=== PATIENT | female | born 1985 | race Caucasian/White ===

== ENCOUNTER 2018-10-13 11:36 | Inpatient (IN) | payer MEDICAID ==
[2018-10-13] MEDS: LACTATED RINGER'S 1,000 ML IV ×3 (12:24→18:10)
[2018-10-13] MEDS ORDERED: METHYLERGONOVINE 0.2 MG INJ IM ×2 (12:30→16:00)
[2018-10-13] MEDS ORDERED: MISOPROSTOL 200 MCG TAB PR ×2 (12:30→16:00)
[2018-10-13] MEDS ORDERED: CARBOPROST 250 MCG INJ IM ×2 (12:30→16:00)
[2018-10-13] MEDS ORDERED: OXYTOCIN 30 UNITS/LR 500 ML IV ×2 (12:30→16:00)
[2018-10-13 12:42] LABS: ADD MAN DIFF? NO
[2018-10-13 12:49] LABS: BASOPHILS % 0.6 % (0.0-2.0); EOSINOPHILS % 0.3 % (0.0-7.0); HEMATOCRIT 42.3 % (37.0-47.0); LYMPHOCYTES # 1.7 10^3/ul (0.8-2.9); LYMPHOCYTES % 25.1 % (15.0-51.0); MEAN CORPUSCULAR HEMOGLOBIN 28.8 pg (29.0-33.0); MEAN CORPUSCULAR HGB CONC 33.1 g/dl (32.0-37.0); MEAN PLATELET VOLUME 12.7 fl (7.4-10.4); MONOCYTE # 0.3 10^3/ul (0.3-0.9); MONOCYTES % 4.9 % (0.0-11.0); NEUTROPHIL # 4.6 10^3/ul (1.6-7.5); NEUTROPHILS % 67.9 % (39.0-77.0); PLATELET COUNT 164 10^3/UL (140-415); RED BLOOD COUNT 4.86 10^6/ul (4.20-5.40); RED CELL DISTRIBUTION WIDTH 14.1 % (11.5-14.5)
[2018-10-13 12:49] LABS: WHITE BLOOD COUNT 6.7 10^3/ul (4.8-10.8)
[2018-10-13 13:08] LABS: INR 0.87; PROTIME 11.9 Sec (11.9-14.9); PT RATIO 0.9
[2018-10-13 13:36] LABS: HEPATITIS B SURFACE ANTIGEN NEGATIVE (NEGATIVE)
[2018-10-13] MEDS ORDERED: morphine SULFATE/PF (10 MG/10 ML) INJ (14:44)
[2018-10-13] MEDS ORDERED: EPHEDrine 50 MG INJ (15:00)
[2018-10-13] MEDS ORDERED: OXYTOCIN 10 UNIT INJ ×2 (15:03→15:13)
[2018-10-13] MEDS ORDERED: ONDANSETRON 4 MG INJ (15:03)
[2018-10-13] MEDS ORDERED: METOCLOPRAMIDE 10 MG INJ (15:03)
[2018-10-13] MEDS ORDERED: MIDAZOLAM 1 MG/ML 2 ML INJ (15:07)
[2018-10-13] MEDS ORDERED: MIDAZOLAM 1 MG/ML 2 ML INJ IV (15:30)
[2018-10-13] MEDS ORDERED: MEPERIDINE 25 MG INJ IV (15:30)
[2018-10-13] MEDS ORDERED: NALOXONE (0.4 MG/ML) INJ IV (15:30)
[2018-10-13] MEDS ORDERED: NALBUPHINE HCL (10 MG/1 ML) INJ IV (15:30)
[2018-10-13] MEDS ORDERED: ONDANSETRON 4 MG INJ IV (15:30)
[2018-10-13] MEDS ORDERED: DIPHENHYDRAMINE 50 MG INJ IV ×2 (15:30)
[2018-10-13] MEDS ORDERED: HYDROmorphONE 0.5 MG/0.5 ML SYG IV ×2 (15:30)
[2018-10-13] MEDS ORDERED: LORAZEPAM 2 MG INJ IV (15:30)
[2018-10-13] MEDS ORDERED: ZOLPIDEM 5 MG TAB PO (15:30)
[2018-10-13] MEDS ORDERED: LANOLIN HPA 1 PKT TOP (16:00)
[2018-10-13] MEDS ORDERED: HYDROCODONE/APAP (5/325) TAB PO (16:00)
[2018-10-13] MEDS ORDERED: METHYLERGONOVINE 0.2 MG TAB PO (16:00)
[2018-10-13] MEDS ORDERED: IBUPROFEN 800 MG TAB PO (16:00)
[2018-10-13] MEDS: OXYTOCIN 30 UNITS/LR 500 ML IV ×3 (16:16→20:11)
[2018-10-13] MEDS: CEFAZOLIN 2 GM/50 ML (PMX) 50 ML IVPB (16:18)
[2018-10-13] MEDS: ONDANSETRON 4 MG INJ IV (16:18)
[2018-10-13] MEDS: SENNA/DOCUSATE NA (8.6MG/50MG) TAB PO (20:12)
[2018-10-13 21:11] LABS: RAPID PLASMA REAGIN NONREACTIVE (NR)
[2018-10-14] MEDS: LACTATED RINGER'S 1,000 ML IV ×4 (04:43→18:13)
[2018-10-14 07:55] LABS: ADD MAN DIFF? NO
[2018-10-14 07:58] LABS: BASOPHILS % 0.3 % (0.0-2.0); EOSINOPHILS % 0.1 % (0.0-7.0); HEMATOCRIT 36.8 % (37.0-47.0); HEMOGLOBIN 12.2 g/dl (12.0-16.0); LYMPHOCYTES # 1.1 10^3/ul (0.8-2.9); LYMPHOCYTES % 9.1 % (15.0-51.0); MEAN CORPUSCULAR HEMOGLOBIN 28.7 pg (29.0-33.0); MEAN CORPUSCULAR HGB CONC 33.2 g/dl (32.0-37.0); MEAN CORPUSCULAR VOLUME 86.6 fl (82.0-101.0); MONOCYTE # 0.6 10^3/ul (0.3-0.9); NEUTROPHIL # 10.1 10^3/ul (1.6-7.5); PLATELET COUNT 146 10^3/UL (140-415); RED BLOOD COUNT 4.25 10^6/ul (4.20-5.40); RED CELL DISTRIBUTION WIDTH 13.7 % (11.5-14.5)
[2018-10-14 07:58] LABS: WHITE BLOOD COUNT 11.9 10^3/ul (4.8-10.8)
[2018-10-14 08:17] LABS: ANION GAP 10 (5-13); BLOOD UREA NITROGEN 7 mg/dl (7-20); CALCIUM 8.7 mg/dl (8.4-10.2); CARBON DIOXIDE 26 mmol/L (21-31); CHLORIDE 100 mmol/L (97-110); CREATININE 0.57 mg/dl (0.44-1.00); Estimated GFR > 60 mL/min (>60); GLUCOSE 77 mg/dl (70-220); POTASSIUM 4.1 mmol/L (3.5-5.1); SODIUM 136 mmol/L (135-144)
[2018-10-14] MEDS: SENNA/DOCUSATE NA (8.6MG/50MG) TAB PO ×2 (09:00→21:00)
[2018-10-14] MEDS: KETOROLAC 30 MG INJ IV (13:17)
[2018-10-14] MEDS: IBUPROFEN 800 MG TAB PO (23:39)
[2018-10-15] MEDS: HYDROCODONE/APAP (5/325) TAB PO ×3 (01:55→15:12)
[2018-10-15] MEDS: LACTATED RINGER'S 1,000 ML IV ×3 (04:18→16:49)
[2018-10-15] MEDS: SENNA/DOCUSATE NA (8.6MG/50MG) TAB PO ×2 (08:27→21:00)
[2018-10-15] MEDS: IBUPROFEN 800 MG TAB PO ×2 (12:46→21:15)
[2018-10-16] MEDS: HYDROCODONE/APAP (5/325) TAB PO (02:53)
[2018-10-16] MEDS: LACTATED RINGER'S 1,000 ML IV (04:18)
[2018-10-16] MEDS: IBUPROFEN 800 MG TAB PO (05:28)
[2018-10-16] MEDS: SENNA/DOCUSATE NA (8.6MG/50MG) TAB PO (09:00)
[2018-10-16 09:15] LABS: ADD MAN DIFF? NO
[2018-10-16 09:21] LABS: WHITE BLOOD COUNT 9.3 10^3/ul (4.8-10.8)
[2018-10-16 09:21] LABS: BASOPHILS % 0.3 % (0.0-2.0); EOSINOPHILS # 0.2 10^3/ul (0.0-0.5); EOSINOPHILS % 1.6 % (0.0-7.0); HEMATOCRIT 36.1 % (37.0-47.0); HEMOGLOBIN 11.9 g/dl (12.0-16.0); LYMPHOCYTES # 1.9 10^3/ul (0.8-2.9); LYMPHOCYTES % 20.2 % (15.0-51.0); MEAN CORPUSCULAR HEMOGLOBIN 29.2 pg (29.0-33.0); MEAN CORPUSCULAR VOLUME 88.5 fl (82.0-101.0); MEAN PLATELET VOLUME 11.6 fl (7.4-10.4); MONOCYTE # 0.6 10^3/ul (0.3-0.9); MONOCYTES % 6.3 % (0.0-11.0); NEUTROPHIL # 6.6 10^3/ul (1.6-7.5); PLATELET COUNT 188 10^3/UL (140-415); RED BLOOD COUNT 4.08 10^6/ul (4.20-5.40); RED CELL DISTRIBUTION WIDTH 14.3 % (11.5-14.5)
[2018-10-16] MEDS: DIPHTH/TET/ACEL PERTUSS (ADULT) 0.5 ML VIAL IM* (11:01)
[2018-10-16] MEDS: MEASLES,MUMPS,RUBELLA VACCINE INJ SC* (11:05)
== END 2018-10-16 16:05 | disposition home or self-care (01) | DRG 785 ==
LOC: L-D 11:36 → PP1 18:30
PROVIDERS: Obstetrics & Gynecology
PROC: 10D00Z1 Extraction of Products of Conception, Low, Open Approach (ICD-10-PCS; principal; 2018-10-13 14:00)
PROC: 0UB70ZZ Excision of Bilateral Fallopian Tubes, Open Approach (ICD-10-PCS; 2018-10-13 14:00)
PROC: 0DNU0ZZ Release Omentum, Open Approach (ICD-10-PCS; 2018-10-13 14:00)
PROC: 0UN90ZZ Release Uterus, Open Approach (ICD-10-PCS; 2018-10-13 14:00)
PROC: 0HB7XZZ Excision of Abdomen Skin, External Approach (ICD-10-PCS; 2018-10-13 14:00)
DX: O34.211 Maternal care for low transverse scar from previous cesarean delivery (principal); O99.89 Other specified diseases and conditions complicating pregnancy, childbirth and the puerperium; N73.6 Female pelvic peritoneal adhesions (postinfective); O69.81X0 Labor and delivery complicated by cord around neck, without compression, not applicable or unspecified; Z3A.39 39 weeks gestation of pregnancy; Z37.0 Single live birth; Z30.2 Encounter for sterilization; Z23 Encounter for immunization
CPT/HCPCS: 80048; 85025; 85610; 85730; 86592; 86850; 86900; 86901; 87340; 88302; 90715; 99464